=== PATIENT | female | born 1985 | race Caucasian/White ===

== ENCOUNTER 2017-06-18 05:53 | Emergency (ER) | payer MEDICAID ==
--- NOTE | 2017-06-18 06:29 | ED Physician Documentation ---
PD HPI CHEST PAIN - Stated complaint Stated Complaint: RT RIB PAIN - Chief complaint Chief Complaint: General - History obtained from History obtained from: Patient - History of Present Illness Timing - onset: How many weeks ago (1) Timing - duration: Weeks (1) Timing - details: Gradual onset, Waxing and waning Pain level now: 4 Quality: Pain Location: Right chest Radiation: Neck (right side of neck) Worsened by: Inspiration, Movement, Position Associated symptoms: No: Shortness of air, Diaphoresis, Nausea, Vomiting, Palpitations, Cough Similar symptoms before: Has not had sx before Recently seen: Not recently seen - Additional information Additional information: one week of gradually worsening right low anterolateral chest wall pain, pleuritic and also exacerbated with palpation. Denies h/o similar symptoms. Denies injury. No recent plane travel, surgery/immobilization. Review of Systems Constitutional: reports: Reviewed and negative Cardiac: reports: Chest pain / pressure. denies: Palpitations Respiratory: reports: Reviewed and negative GI: reports: Abdominal Pain. denies: Nausea, Vomiting : denies: Dysuria, Frequency PD PAST MEDICAL HISTORY - Past Medical History Past Medical History: No - Past Surgical History Past Surgical History: No - Present Medications Home Medications: Ambulatory Orders Medication Instructions Recorded Confirmed Ibuprofen [Motrin] 400 mg PO Q6H PRN #30 tablet 06/18/17 Lidocaine Patch 5% [Lidoderm Patch] 1 each TOP DAILY PRN #10 patch 06/18/17 - Allergies Allergies/Adverse Reactions: Allergies Allergy/AdvReac Type Severity Reaction Status Date / Time ippicat Allergy Anaphylaxis Uncoded 05/10/16 11:49 - Social History Does the pt smoke?: No Smoking Status: Never smoker Does the pt drink ETOH?: Yes Does the pt have substance abuse?: Yes - Immunizations Immunizations are current?: Yes PD ED PE NORMAL - Vitals Vital signs reviewed: Yes - General General: Alert and oriented X 3, No acute distress (NAD at rest, but painful discomfort with abdominal exam), Well developed/nourished - Neck Neck: Supple, no meningeal sign - Cardiac Cardiac: RRR, No murmur, No gallop, No rub - Respiratory Respiratory: No respiratory distress, Clear bilaterally - Abdomen Abdomen: Soft, Non distended, Other (TTP RUQ, although unclear if this is due to palpation of abdomen or resulting traction on the right low chest wall/ribs) - Derm Derm: Normal color, Warm and dry, No rash - Extremities Extremities: No edema Results - Vitals Vitals: Vital Signs - 24 hr 06/18/17 06/18/17 06/18/17 05:57 10:33 11:46 Temperature 36.3 C L 36.5 C 36.4 C L Heart Rate 88 68 68 Respiratory 16 16 16 Rate Blood Pressure 124/89 H 119/75 110/75 O2 Saturation 97 98 97 06/18/17 12:40 Temperature 36.6 C Heart Rate 65 Respiratory 18 Rate Blood Pressure 113/68 O2 Saturation 99 Oxygen O2 Source Room air - Labs Labs: Laboratory Tests 06/18/17 06/18/17 06/18/17 07:00 07:00 07:00 WBC 9.0 RBC 5.15 Hgb 13.9 Hct 42.0 MCV 81.6 MCH 27.1 MCHC 33.2 RDW 14.6 Plt Count 256 MPV 7.4 L Neut # 5.3 Lymph # 2.7 [place] # 0.5 Eos # 0.4 Baso # 0.1 Absolute Nucleated RBC 0.01 Nucleated RBC % 0.1 D-Dimer 223.3 Sodium 135 Potassium 4.1 Chloride 102 Carbon Dioxide 25 Anion Gap 8.0 BUN 13 Creatinine 0.8 Estimated GFR (MDRD) 83 L Glucose 129 H Calcium 9.3 Total Bilirubin 0.4 AST 18 ALT 26 Alkaline Phosphatase 66 Total Protein 7.3 Albumin 3.9 Globulin 3.4 Albumin/Globulin Ratio 1.1 Lipase 42 Ur Specific [place] Urine HCG, Qual 06/18/17 07:00 WBC RBC Hgb Hct MCV MCH MCHC RDW Plt Count MPV Neut # Lymph # [place] # Eos # Baso # Absolute Nucleated RBC Nucleated RBC % D-Dimer Sodium Potassium Chloride Carbon Dioxide Anion Gap BUN Creatinine Estimated GFR (MDRD) Glucose Calcium Total Bilirubin AST ALT Alkaline Phosphatase Total Protein Albumin Globulin Albumin/Globulin Ratio Lipase Ur Specific [place] >=1.030 H Urine HCG, Qual NEGATIVE - Rads (name of study) chest xray Radiology: Prelim report reviewed, See rad report RUQ US Radiology: Prelim report reviewed, See rad report PD MEDICAL DECISION MAKING - ED course Complexity details: reviewed results, re-evaluated patient, considered differential, d/w patient ED course: given IV toradol but patient reported minimal relief, thus 4mg IV morphine ordered. CXR and blood tests unremarkable, so RUQ US ordered. This was at the end of my shift and thus case signed-out to Dr. Muller. Departure - Departure Disposition: 01 Home, Self Care Clinical Impression: Rib pain on right side, Abdominal pain Condition: Good Instructions: ED Abdominal Pain Unkn Cause, ED Contusion Chest Wall Follow-Up: Freddie Garcia MD [Provider Admit Priv/Credential] - Prescriptions: Ibuprofen [Motrin] 400 mg PO Q6H PRN #30 tablet PRN Reason: Pain Lidocaine Patch 5% [Lidoderm Patch] 1 each TOP DAILY PRN #10 patch PRN Reason: Pain Comments: All of the tests today came back fine. The blood work including kidney liver and pancreas function was fine. The ultrasound did not show any gallstones The CT scan did not show a liver abscess after all, also no gallstones or kidney stones, no pancreatitis, no aneurysm, no bowel infection/perforation/ obstruction, no internal bleeding or free fluid I am not sure what is causing the pain. It could be a rib injury or muscle strain as you initially suspected But given the extensive and reassuring workup, I do not think you need surgery or admission or antibiotics. I think it is safe for you to go home and to get any further work up as an outpatient It is very possible that over time, new or changing symptoms may develop that lead to a diagnosis not presently apparent. That is why close follow up with your PMD for a recheck is very important You can try motrin and lidocaine patches to ease the pains. I do not recommend any strong pain killers because I do not want to mask changing or worsening symptoms Discharge Date/Time: 06/18/17 13:10
[2017-06-18] MEDS ORDERED: KETOROLAC 60 MG/2 ML VIAL IVP STA (06:50)
[2017-06-18 07:18] LABS: BASOPHILS # (AUTO) 0.1 10^3/uL (0.0-0.1); EOSINOPHILS # (AUTO) 0.4 10^3/uL (0.0-0.7); EOSINOPHILS % (AUTO) 4.3 %; HGB - HEMOGLOBIN 13.9 g/dL (12.0-16.0); LYMPHOCYTES # (AUTO) 2.7 10^3/uL (1.5-3.5); LYMPHOCYTES % (AUTO) 30.1 %; MEAN CORPUSCULAR HEMOGLOBIN 27.1 pg (27.0-31.0); MEAN CORPUSCULAR HGB CONC 33.2 g/dL (32.0-36.0); MEAN CORPUSCULAR VOLUME 81.6 fL (81.0-99.0); MEAN PLATELET VOLUME 7.4 fL (7.9-10.8); MONOCYTES # (AUTO) 0.5 10^3/uL (0.0-1.0); MONOCYTES % (AUTO) 5.7 %; NEUTROPHILS # (AUTO) 5.3 10^3/uL (1.5-6.6); NEUTROPHILS % (AUTO) 58.9 %; NUCLEATED RED BLOOD CELLS AUTO 0.1 /100WBC; RED BLOOD COUNT 5.15 10^6/uL (4.20-5.40); RED CELL DISTRIBUTION WIDTH 14.6 % (12.0-15.0)
[2017-06-18 07:21] LABS: HCG UR QUAL NEGATIVE
[2017-06-18 07:24] LABS: ALBUMIN/GLOBULIN RATIO 1.1 (1.0-2.2); BILIRUBIN,TOTAL 0.4 mg/dL (0.2-1.0); CALCIUM 9.3 mg/dL (8.5-10.3); CREATININE 0.8 mg/dL (0.4-1.0); POTASSIUM 4.1 mmol/L (3.5-5.0); TOTAL PROTEIN 7.3 g/dL (6.7-8.2)
--- NOTE | 2017-06-18 07:48 | XRAY Preliminary Report ---
Exam: XR CHEST 2 VIEW PA/LAT IMPRESSION: Negative 2-view chest radiography. [facility] SITE ID: [id number]
--- NOTE | 2017-06-18 07:51 | XRAY Report ---
EXAM: CHEST RADIOGRAPHY EXAM DATE: 06/18/2017 07:41 AM. CLINICAL HISTORY: Right chest pain. COMPARISON: None. TECHNIQUE: 2 views. FINDINGS: Lungs/Pleura: No focal opacities evident. No pleural effusion. No pneumothorax. Normal volumes. Mediastinum: Heart and mediastinal contours are unremarkable. Other: Negative bony structures. IMPRESSION: Negative 2-view chest radiography. [facility] Referring Provider Line: [phone] SITE ID: [id number]
[2017-06-18] MEDS ORDERED: MORPHINE 10 MG/ML VIAL IVP STA (08:32)
--- NOTE | 2017-06-18 08:46 | ED Physician Documentation ---
History of Present Illness - Stated complaint Stated Complaint: RT RIB PAIN - Chief complaint Chief Complaint: General PD PAST MEDICAL HISTORY - Past Surgical History Past Surgical History: No - Present Medications Home Medications: Ambulatory Orders Medication Instructions Recorded Confirmed Ibuprofen [Motrin] 400 mg PO Q6H PRN #30 tablet 06/18/17 Lidocaine Patch 5% [Lidoderm Patch] 1 each TOP DAILY PRN #10 patch 06/18/17 - Allergies Allergies/Adverse Reactions: Allergies Allergy/AdvReac Type Severity Reaction Status Date / Time ippicat Allergy Anaphylaxis Uncoded 05/10/16 11:49 - Social History Does the pt smoke?: No Smoking Status: Never smoker Does the pt drink ETOH?: Yes Does the pt have substance abuse?: Yes - Immunizations Immunizations are current?: Yes Results - Vitals Vitals: Vital Signs - 24 hr 06/18/17 06/18/17 06/18/17 05:57 10:33 11:46 Temperature 36.3 C L 36.5 C 36.4 C L Heart Rate 88 68 68 Respiratory 16 16 16 Rate Blood Pressure 124/89 H 119/75 110/75 O2 Saturation 97 98 97 Oxygen O2 Source Room air - Labs Labs: Laboratory Tests 06/18/17 06/18/17 06/18/17 07:00 07:00 07:00 WBC 9.0 RBC 5.15 Hgb 13.9 Hct 42.0 MCV 81.6 MCH 27.1 MCHC 33.2 RDW 14.6 Plt Count 256 MPV 7.4 L Neut # 5.3 Lymph # 2.7 [place] # 0.5 Eos # 0.4 Baso # 0.1 Absolute Nucleated RBC 0.01 Nucleated RBC % 0.1 D-Dimer 223.3 Sodium 135 Potassium 4.1 Chloride 102 Carbon Dioxide 25 Anion Gap 8.0 BUN 13 Creatinine 0.8 Estimated GFR (MDRD) 83 L Glucose 129 H Calcium 9.3 Total Bilirubin 0.4 AST 18 ALT 26 Alkaline Phosphatase 66 Total Protein 7.3 Albumin 3.9 Globulin 3.4 Albumin/Globulin Ratio 1.1 Lipase 42 Ur Specific [place] Urine HCG, Qual 06/18/17 07:00 WBC RBC Hgb Hct MCV MCH MCHC RDW Plt Count MPV Neut # Lymph # [place] # Eos # Baso # Absolute Nucleated RBC Nucleated RBC % D-Dimer Sodium Potassium Chloride Carbon Dioxide Anion Gap BUN Creatinine Estimated GFR (MDRD) Glucose Calcium Total Bilirubin AST ALT Alkaline Phosphatase Total Protein Albumin Globulin Albumin/Globulin Ratio Lipase Ur Specific [place] >=1.030 H Urine HCG, Qual NEGATIVE PD MEDICAL DECISION MAKING - ED course ED course: assumed care 830 AM RUQ sono pending went to see pt no pain nand rest but TTP right along costal margin on exam - no rash RRR CTAB sono = no gallstones but possible liver abscess so then got CT per rad rec and that did not show an abscess or any other acute process so 33 f with progressive R costal margin pain worse with palp and insp neg CXR neg d dimer neg ruq sono neg CT scan etiology unclear could perhaps be shingles and no rash yet but that would prob not be pleuritic or worse with palp pt thinks she may have just pulled a muscle or bruised a rib caring for her 4 children but given extensive and reassuring work up think safe to dc home Departure - Departure Disposition: 01 Home, Self Care Clinical Impression: Rib pain on right side Abdominal pain Qualifiers: Abdominal location: right upper quadrant Qualified Code(s): R10.11 - Right upper quadrant pain Condition: Good Instructions: ED Abdominal Pain Unkn Cause, ED Contusion Chest Wall Follow-Up: Freddie Garcia MD [Provider Admit Priv/Credential] - Prescriptions: Ibuprofen [Motrin] 400 mg PO Q6H PRN #30 tablet PRN Reason: Pain Lidocaine Patch 5% [Lidoderm Patch] 1 each TOP DAILY PRN #10 patch PRN Reason: Pain Comments: All of the tests today came back fine. The blood work including kidney liver and pancreas function was fine. The ultrasound did not show any gallstones The CT scan did not show a liver abscess after all, also no gallstones or kidney stones, no pancreatitis, no aneurysm, no bowel infection/perforation/ obstruction, no internal bleeding or free fluid I am not sure what is causing the pain. It could be a rib injury or muscle strain as you initially suspected But given the extensive and reassuring workup, I do not think you need surgery or admission or antibiotics. I think it is safe for you to go home and to get any further work up as an outpatient It is very possible that over time, new or changing symptoms may develop that lead to a diagnosis not presently apparent. That is why close follow up with your PMD for a recheck is very important You can try motrin and lidocaine patches to ease the pains. I do not recommend any strong pain killers because I do not want to mask changing or worsening symptoms
[2017-06-18] MEDS ORDERED: IOPAMIDOL-300 100 ML VIAL ONE (10:01)
[2017-06-18] MEDS ORDERED: IOPAMIDOL-300 100 ML VIAL IVP ONE (10:23)
--- NOTE | 2017-06-18 11:11 | CT Preliminary Report ---
Exam: CT ABDOMEN/PELVIS W/ IMPRESSION: Diffuse fatty infiltration of the liver. No CT correlate for the ultrasound finding. No a cute findings in the abdomen and pelvis. Incidental note made of bilateral L5 pars interarticularis d efects and mild lumbar levoscoliosis. [facility] SITE ID: [id number]
--- NOTE | 2017-06-18 11:13 | CT Report ---
EXAM: CT ABDOMEN AND PELVIS EXAM DATE: 06/18/2017 10:30 AM. CLINICAL HISTORY: Abdominal pain. Abn liver on sono concern for abscess rad rec CT. COMPARISONS: Ultrasound earlier today.. TECHNIQUE: Routine helical CT imaging was performed through the abdomen and pelvis. IV contrast: 100M L OF ISOVUE 300. Enteric contrast: No. Reconstructions: Coronal and sagittal. In accordance with CT protocol optimization, one or more of the following dose reduction techniques w ere utilized for this exam: automated exposure control, adjustment of mA and/or KV based on patient s ize, or use of iterative reconstructive technique. FINDINGS: Lung Bases: Unremarkable. Liver: Patchy diffuse fatty infiltration. No masses. No correlate for the finding on ultrasound. Gallbladder/Bile Ducts: Unremarkable. Spleen: Normal. Pancreas: Normal. Adrenal Glands: Normal. Kidneys: Normal. No masses or hydronephrosis. Peritoneal Cavity/Bowel: No free fluid, free air or adenopathy. No masses or acute inflammatory proc ess. The appendix is well seen and normal. Pelvic Organs: The bladder and pelvic organs are within normal limits. Vasculature: No aneurysms or other significant abnormality. Bones: Bilateral L5 pars interarticularis defects. Mild lumbar levoscoliosis Other: None. IMPRESSION: Diffuse fatty infiltration of the liver. No CT correlate for the ultrasound finding. No a cute findings in the abdomen and pelvis. Incidental note made of bilateral L5 pars interarticularis d efects and mild lumbar levoscoliosis. [facility] Referring Provider Line: [phone] SITE ID: [id number]
[2017-06-18 12:47] VITALS: BP 113/68
--- NOTE | 2017-06-19 09:01 | Ultrasound Report ---
EXAM: RIGHT UPPER QUADRANT ULTRASOUND: 06/18/2017 CLINICAL INDICATION: Right upper quadrant pain. TECHNIQUE: Real-time scanning was performed with sales training representative static images obtained. FINDINGS: The liver measures 18.9 cm. Hepatic echogenicity is increased, compatible with fatty infiltration. There is a focus of shadowing, which appears to reside within the left lobe of the liver, and shadows as if there is gas within it. If this is truly within the liver, it may represent a hepatic abscess. Further evaluation with CT is recommended. The gallbladder appears unremarkable. The common bile duct measures 5 mm. The right kidney measures 13.2 cm, and demonstrates no hydronephrosis. No free fluid is present. IMPRESSION: NO EVIDENCE OF CHOLELITHIASIS OR BILIARY OBSTRUCTION. FOCUS OF SHADOWING WHICH APPEARS TO RESIDE WITHIN THE LEFT LOBE OF THE LIVER. IF THIS IS TRULY WITHIN THE LIVER, IT MAY REPRESENT A HEPATIC ABSCESS, SO CT IS RECOMMENDED FOR FURTHER EVALUATION. TD: 06/18/2017 15:44 MTDD
== END 2017-06-18 13:10 | disposition home or self-care (01) ==
LOC: ED 05:53
DX: R07.81 Pleurodynia (principal); R10.11 Right upper quadrant pain
CPT/HCPCS: 36415; 71020; 74177; 76705; 80053; 81025; 83690; 85025; 85379; 96374; 96375; 99283; Q9967

== ENCOUNTER 2020-02-05 14:59 | Outpatient (CLI) | payer MEDICAID ==
[2020-02-05 18:41] LABS: BASOPHILS # (AUTO) 0.1 10^3/uL (0.0-0.1); BASOPHILS % (AUTO) 0.7 %; EOSINOPHILS # (AUTO) 0.5 10^3/uL (0.0-0.7); EOSINOPHILS % (AUTO) 6.3 %; HGB - HEMOGLOBIN 14.2 g/dL (12.0-16.0); LYMPHOCYTES # (AUTO) 2.4 10^3/uL (1.5-3.5); MEAN CORPUSCULAR HEMOGLOBIN 27.5 pg (27.0-31.0); MEAN PLATELET VOLUME 9.8 fL (7.9-10.8); MONOCYTES # (AUTO) 0.6 10^3/uL (0.0-1.0); MONOCYTES % (AUTO) 6.6 %; NEUTROPHILS # (AUTO) 4.8 10^3/uL (1.5-6.6); NEUTROPHILS % (AUTO) 57.8 %; PLT - PLATELET COUNT 312 10^3/uL (130-450); RED BLOOD COUNT 5.16 10^6/uL (4.20-5.40); RED CELL DISTRIBUTION WIDTH 13.9 % (12.0-15.0); WHITE BLOOD COUNT 8.4 x10^3/uL (4.8-10.8)
[2020-02-05 19:07] LABS: ALBUMIN/GLOBULIN RATIO 1.3 (1.0-2.2); BILIRUBIN,TOTAL 0.3 mg/dL (0.2-1.0); CALCIUM 8.8 mg/dL (8.5-10.3); CREATININE 0.8 mg/dL (0.4-1.0); TOTAL PROTEIN 7.2 g/dL (6.7-8.2)
== END 2020-02-05 23:59 | disposition home or self-care (01) ==
LOC: LAB.WCP 14:59
PROVIDERS: ATTEND Nurse Practitioner Family
DX: Z00.00 Encounter for general adult medical examination without abnormal findings (principal)
CPT/HCPCS: 36415; 80053; 84443; 85025

== ENCOUNTER 2020-03-19 14:42 | Outpatient (CLI) | payer MEDICAID ==
--- NOTE | 2020-03-19 16:23 | CT Report ---
PROCEDURE: HEAD WO INDICATIONS: ATYPICAL HEADACHE TECHNIQUE: Noncontrast 4.5 mm thick angled axial sections acquired from the foramen magnum to the vertex. For r adiation dose reduction, the following was used: automated exposure control, adjustment of mA and/or kV according to patient size. COMPARISON: None. FINDINGS: Image quality: Excellent. CSF spaces: Basal cisterns are patent. No extra-axial fluid collections. Ventricles are normal in size and shape. Brain: No midline shift. No intracranial masses or hemorrhage. Smalls-white matter interface is norm al. Skull and face: Calvarium and visualized facial bones are intact, without suspicious lesions. Sinuses: Visualized sinuses demonstrate right maxillary sinus mucus retention cyst. IMPRESSION: 1. No acute intracranial process. Reviewed by: Ling Suazo MD on 03/19/2020 4:22 PM PDT Approved by: Ling Suazo MD on 03/19/2020 4:22 PM PDT Station ID: [id number]
== END 2020-03-19 14:43 | disposition home or self-care (01) ==
LOC: DI 14:42
PROVIDERS: ATTEND Nurse Practitioner Family
DX: R51 Headache (principal)
CPT/HCPCS: 70450

== ENCOUNTER 2020-05-14 11:22 | Outpatient (CLI) | payer MEDICAID ==
--- NOTE | 2020-05-14 11:25 | XRAY Report ---
PROCEDURE: Lumbar Spine Complete INDICATIONS: ACUTE LOWER BACK PAIN TECHNIQUE: 5 views of the lumbar spine were acquired. COMPARISON: None. FINDINGS: Bones: Lumbar levoscoliosis with Izaguirre angle of approximately 26 degrees centered at L3. No listhesis . Oblique views demonstrate no evidence of pars defect or significant osseous neural foraminal narrow ing. The vertebral disc spaces are congruent and maintained. Soft tissues: Overlying bowel gas pattern is normal. No suspicious soft tissue calcifications. IMPRESSION: Lumbar levoscoliosis with Izaguirre angle of 26 degrees centered at L3. No osseous neural foraminal narrowing or significant disc height loss demonstrated. Reviewed by: Bonifacio Carrion MD on 05/14/2020 11:23 AM PST Approved by: Bonifacio Carrion MD on 05/14/2020 11:23 AM PST Station ID: [id number]
== END 2020-05-14 23:59 | disposition home or self-care (01) ==
LOC: DI.N 11:22
PROVIDERS: ATTEND Nurse Practitioner
DX: M41.86 Other forms of scoliosis, lumbar region (principal)

== ENCOUNTER 2021-02-18 15:37 | Outpatient (CLI) | payer MEDICAID | END 2021-02-18 15:38 | disposition critical access hospital (66) | LOC: EMS 15:37 | DX: R10.9 Unspecified abdominal pain (principal) | CPT/HCPCS: A0425; A0427; A0999 ==

== ENCOUNTER 2021-02-18 15:53 | Emergency (ER) | payer MEDICAID ==
[2021-02-18] MEDS ORDERED: KETOROLAC 30 MG/ML VIAL IVP STA (16:00)
[2021-02-18] MEDS ORDERED: SODIUM CHLORIDE 0.9% 1,000 ML IV STA (16:00)
--- NOTE | 2021-02-18 16:05 | ED Physician Documentation ---
PD HPI ABD PAIN - Stated complaint Stated Complaint: R FLANK PX - History obtained from History obtained from: Patient, EMS - History of Present Illness Timing - onset: Enter time (1500), Today Timing - duration: Minutes Timing - details: Abrupt onset, Still present Quality: Sharp, Pain Location: RUQ Radiation: Right flank Improved by: Other (nothing) Worsened by: Other (nothing) Associated symptoms: Nausea. No: Vomiting Similar symptoms before: Diagnosis (kidney stone) Recently seen: Not recently seen - Additional information Additional information: Previously well 35-year-old female with a history of kidney stone has developed acute right upper quadrant abdominal pain radiating into her flank and across her abdomen. There are no modifying factors for this pain. This is similar to what she is had previously with kidney stone. She is in a lot of pain and did not get much relief with use of fentanyl given intravenously. Review of Systems Constitutional: denies: Fever Eyes: denies: Decreased vision Ears: denies: Ear pain Nose: denies: Congestion Throat: denies: Sore throat Cardiac: denies: Chest pain / pressure, Palpitations Respiratory: denies: Dyspnea, Cough GI: reports: Abdominal Pain, Nausea. denies: Vomiting : denies: Dysuria, Frequency PD PAST MEDICAL HISTORY - Past Surgical History Past Surgical History: No - Present Medications Home Medications: Ambulatory Orders Medication Instructions Recorded Confirmed Ibuprofen [Motrin] 400 mg PO Q6H PRN #30 tablet 06/18/17 Lidocaine Patch 5% [Lidoderm Patch] 1 each TOP DAILY PRN #10 patch 06/18/17 Oxycodone HCl/Acetaminophen 1 - 2 each PO Q6H PRN #14 tablet 02/18/21 [Percocet 5-325 mg Tablet] Tamsulosin [Flomax] 0.4 mg PO DAILY #7 cap 02/18/21 - Allergies Allergies/Adverse Reactions: Allergies Allergy/AdvReac Type Severity Reaction Status Date / Time ippicat Allergy Anaphylaxis Uncoded 02/18/21 16:11 - Social History Does the pt smoke?: No Smoking Status: Never smoker Does the pt drink ETOH?: Yes Does the pt have substance abuse?: Yes - Immunizations Immunizations are current?: Yes PD ED PE NORMAL - Vitals Vital signs reviewed: Yes - General General: Alert and oriented X 3, Well developed/nourished, Other (appears to be in pain ) - HEENT HEENT: Atraumatic, PERRL, EOMI - Neck Neck: Supple, no meningeal sign, No bony TTP - Cardiac Cardiac: RRR, No murmur - Respiratory Respiratory: No respiratory distress, Clear bilaterally - Abdomen Abdomen: Normal bowel sounds, Soft, Non tender, Non distended, No organomegaly - Back Back: No CVA TTP, No spinal TTP - Derm Derm: Normal color, Warm and dry, No rash - Extremities Extremities: No deformity, No edema - Neuro Neuro: Alert and oriented X 3, pt skilled 2-12 intact, No motor deficit, No sensory deficit, Normal speech Eye Opening: Spontaneous Motor: Obeys Commands Verbal: Oriented GCS Score: 15 - Psych Psych: Normal mood, Normal affect Results - Vitals Vitals: Vital Signs - 24 hr 02/18/21 02/18/21 02/18/21 16:00 18:10 18:34 Temperature 36.8 C 36.7 C Heart Rate 63 73 61 Respiratory 18 18 14 Rate Blood Pressure 123/75 102/66 101/71 O2 Saturation 99 94 96 Oxygen O2 Source Room air - Labs Labs: Laboratory Tests 02/18/21 02/18/21 02/18/21 16:08 16:08 17:49 WBC 10.8 RBC 5.51 H Hgb 15.1 Hct 45.5 MCV 82.6 MCH 27.4 MCHC 33.2 RDW 13.5 Plt Count 406 MPV 8.9 Neut # (Auto) 5.2 Lymph # (Auto) 4.2 [place] # (Auto) 0.8 Eos # (Auto) 0.5 Baso # (Auto) 0.1 Absolute Nucleated RBC 0.00 Nucleated RBC % 0.0 Sodium 137 Potassium 3.1 L Chloride 106 Carbon Dioxide 17 L Anion Gap 14.0 H BUN 14 Creatinine 0.9 Estimated GFR (MDRD) 70 L Glucose 180 H Calcium 9.0 Total Bilirubin 0.9 AST 20 ALT 19 Alkaline Phosphatase 51 Total Protein 7.3 Albumin 4.2 Globulin 3.1 Albumin/Globulin Ratio 1.4 Lipase 33 Urine Color YELLOW Urine Clarity CLEAR Urine pH 6.0 Ur Specific [place] 1.025 Urine Protein TRACE Urine Glucose (UA) NEGATIVE Urine Ketones >=80 H Urine Occult Blood LARGE H Urine Nitrite NEGATIVE Urine Bilirubin NEGATIVE Urine Urobilinogen 0.2 (NORMAL) Ur Leukocyte Esterase NEGATIVE Urine RBC TNTC H Urine WBC 0-3 Ur Squamous Epith Cells MOD Squamous H Urine Bacteria Moderate H Urine Mucus Moderate Strands Ur Microscopic Review INDICATED Urine Culture Comments NOT INDICATED Urine HCG, Qual NEGATIVE - Rads (name of study) CT ab pel Radiology: Prelim report reviewed (Impression: 1. Small 3 mm right proximal ureteral calculus results in mild right hydronephrosis. Incidental 5 mm right middle lobe nodule is stable from prior. No follow-up is required.), EMP read indepedently, See rad report Procedures - Bedside sono Bedside sono by EMP: With the use of bedside ultrasound the right upper quadrant is imaged the kidney is sonographically nontender there is evidence of hydronephrosis. PD MEDICAL DECISION MAKING - ED course Complexity details: reviewed old records, reviewed results, re-evaluated patient, considered differential, d/w patient, d/w family ED course: 35-year-old female with acute right sided flank pain nonmodifiable has a through 3 mm proximal ureteral stone. She has marked improvement with use of Toradol intravenously and she is discharged home with expectant management feeling well. She is administered a liter of saline as well and she is placed onto Flomax as this is helped with her previously Departure - Departure Disposition: Home, Self Care Clinical Impression: Ureterolithiasis Condition: Stable Instructions: ED Stone Renal W Colic Follow-Up: ERNST COOK, MSN, PERFORMANCE REPORTER [Credentialed Staff Provider] - Ofelia Magdaleno MD [Physician No Access] - Prescriptions: Tamsulosin [Flomax] 0.4 mg PO DAILY #7 cap Oxycodone HCl/Acetaminophen [Percocet 5-325 mg Tablet] 1 - 2 each PO Q6H PRN #14 tablet PRN Reason: pain Discharge Date/Time: 02/18/21 18:36
[2021-02-18 16:14] LABS: BASOPHILS # (AUTO) 0.1 10^3/uL (0.0-0.1); BASOPHILS % (AUTO) 1.1 %; EOSINOPHILS # (AUTO) 0.5 10^3/uL (0.0-0.7); EOSINOPHILS % (AUTO) 4.5 %; HCT - HEMATOCRIT 45.5 % (37.0-47.0); HGB - HEMOGLOBIN 15.1 g/dL (12.0-16.0); LYMPHOCYTES # (AUTO) 4.2 10^3/uL (1.5-3.5); LYMPHOCYTES % (AUTO) 38.6 %; MEAN CORPUSCULAR HEMOGLOBIN 27.4 pg (27.0-31.0); MEAN CORPUSCULAR HGB CONC 33.2 g/dL (32.0-36.0); MEAN CORPUSCULAR VOLUME 82.6 fL (81.0-99.0); MEAN PLATELET VOLUME 8.9 fL (7.9-10.8); MONOCYTES # (AUTO) 0.8 10^3/uL (0.0-1.0); MONOCYTES % (AUTO) 7.3 %; NEUTROPHILS # (AUTO) 5.2 10^3/uL (1.5-6.6); NEUTROPHILS % (AUTO) 48.3 %; PLT - PLATELET COUNT 406 10^3/uL (130-450); RED BLOOD COUNT 5.51 10^6/uL (4.20-5.40); RED CELL DISTRIBUTION WIDTH 13.5 % (12.0-15.0); WHITE BLOOD COUNT 10.8 x10^3/uL (4.8-10.8)
[2021-02-18 16:32] LABS: ALBUMIN 4.2 g/dL (3.2-5.5); ALBUMIN/GLOBULIN RATIO 1.4 (1.0-2.2); BILIRUBIN,TOTAL 0.9 mg/dL (0.2-1.0); CREATININE 0.9 mg/dL (0.4-1.0); POTASSIUM 3.1 mmol/L (3.5-5.0); TOTAL PROTEIN 7.3 g/dL (6.7-8.2)
[2021-02-18] MEDS ORDERED: ONDANSETRON 4 MG/2 ML VIAL IVP STA (16:55)
[2021-02-18] MEDS ORDERED: POTASSIUM CHLORIDE 20 MEQ TABLET PO STA (17:08)
[2021-02-18 18:14] LABS: BILIRUBIN,URINE NEGATIVE (NEGATIVE); GLUCOSE, URINE (UA) NEGATIVE (NEGATIVE); KETONES,URINE (UA) >=80 mg/dL (NEGATIVE); LEUKOCYTE ESTERASE, URINE NEGATIVE (NEGATIVE); NITRITE,URINE NEGATIVE (NEGATIVE); OCCULT BLOOD,URINE LARGE (NEGATIVE); PROTEIN,URINE TRACE mg/dL (NEGATIVE); UROBILINOGEN,URINE 0.2 (NORMAL) E.U./dL (NORMAL)
[2021-02-18 18:16] LABS: CLARITY,URINE CLEAR (CLEAR); HCG UR QUAL NEGATIVE
[2021-02-18 18:32] LABS: BACTERIA,URINE Moderate /HPF (None Seen); MUCUS,URINE Moderate Strands; RBC,URINE TNTC /HPF (0-5); SQUAMOUS EPITHELIAL CELL,UR MOD Squamous (<= Few); WBC,URINE 0-3 /HPF (0-5)
[2021-02-18 18:36] VITALS: BP 101/71
--- NOTE | 2021-02-18 18:40 | CT Report ---
PROCEDURE: Abdomen/Pelvis WO INDICATIONS: R flank pain TECHNIQUE: Noncontrast 5 mm thick sections acquired from the diaphragms to the symphysis. 5 mm coronal and sagi ttal reformats were then performed. For radiation dose reduction, the following was used: automated exposure control, adjustment of mA and/or kV according to patient size. COMPARISON: 06/18/2017 FINDINGS: Image quality: Excellent. ABDOMEN: Lung bases: Incidental 5 mm nodule noted in the right middle lobe, stable from the prior Heart size i s normal. Solid organs: Liver and spleen are normal in size. Diffuse hepatic fatty infiltration noted. Gallbl adder unremarkable. Pancreas is normal in contours. No adrenal nodules. There is a 3 mm calculus in the proximal right ureter resulting in mild right hydronephrosis. No judson tional calculi present bilaterally. Peritoneum and bowel: Unenhanced bowel loops demonstrate normal wall thickness and caliber. No free fluid or air. Normal appendix identified. Nodes and vessels: No retroperitoneal or mesenteric adenopathy by size criteria. Aorta and inferior vena cava are normal in caliber. Miscellaneous: No ventral hernias. PELVIS: Genitourinary: Bladder wall thickness is normal. Miscellaneous: No inguinal hernias or adenopathy. Bones: No suspicious bony lesions. No vertebral body compression fractures. IMPRESSION: 1. Small 3 mm right proximal ureteral calculus results in mild right hydronephrosis. 2. Incidental 5 mm right middle lobe nodule is stable from the prior. No follow-up required. Reviewed by: Cortez Ye MD on 02/18/2021 5:39 PM AKDT Approved by: Cortez Ye MD on 02/18/2021 5:39 PM AKDT Station ID: [id number]
== END 2021-02-18 18:36 | disposition home or self-care (01) ==
LOC: EDUNIT# → ED 15:53
DX: N13.2 Hydronephrosis with renal and ureteral calculous obstruction (principal)
CPT/HCPCS: 36415; 74176; 80053; 81001; 81025; 83690; 85025; 96374; 96375; 99284; A9270; 81003; 87086

== ENCOUNTER 2021-02-19 09:00 | Emergency (ER) | payer MEDICAID ==
[2021-02-19] MEDS ORDERED: SODIUM CHLORIDE 0.9% 1,000 ML IV STA (09:24)
[2021-02-19] MEDS ORDERED: KETOROLAC 30 MG/ML VIAL IVP STA (09:24)
--- NOTE | 2021-02-19 09:26 | ED Physician Documentation ---
PD HPI ABD PAIN - Stated complaint Stated Complaint: R SIDE PX,NAUSEA - Chief complaint Chief Complaint: Abd Pain - History obtained from History obtained from: Family - History of Present Illness Timing - onset: Yesterday Timing - duration: Days (2) Timing - details: Abrupt onset, Still present, Waxing and waning Quality: Sharp, Pain Location: RUQ Radiation: Right flank Improved by: Meds Worsened by: Other (nothing) Associated symptoms: Nausea. No: Vomiting Similar symptoms before: Diagnosis (ureterolithiasis) Recently seen: Emergency Dept - Additional information Additional information: 35-year-old female with a history of kidney stone was seen in the emergency department yesterday with right-sided flank pain she had a proximal 3 mm ureteral stone she had marked improvement with use of Toradol intravenously here in the emergency department after she had been given fentanyl in the field without much improvement. She left the emergency department pain-free with this 3 mm proximal stone causing mild hydronephrosis. She did have pain return and she took the Percocet throughout the night and this seemed to help until early this morning when the pain suddenly was completely out of control. She returns now this morning in tears Review of Systems Constitutional: denies: Fever Eyes: denies: Decreased vision Ears: denies: Ear pain Nose: denies: Congestion Throat: denies: Sore throat Cardiac: denies: Chest pain / pressure, Palpitations Respiratory: denies: Dyspnea GI: reports: Abdominal Pain, Nausea. denies: Vomiting, Constipation, Diarrhea : denies: Dysuria, Frequency PD PAST MEDICAL HISTORY - Past Surgical History Past Surgical History: No - Present Medications Home Medications: Ambulatory Orders Medication Instructions Recorded Confirmed Oxycodone HCl/Acetaminophen 1 - 2 each PO Q6H PRN #14 tablet 02/18/21 02/19/21 [Percocet 5-325 mg Tablet] Tamsulosin [Flomax] 0.4 mg PO DAILY #7 cap 02/18/21 02/19/21 Hydromorphone HCl [Dilaudid] 4 mg PO Q4HR PRN #20 tablet 02/19/21 Ondansetron Odt [Zofran] 4 mg TL Q6H PRN #10 tablet 02/19/21 - Allergies Allergies/Adverse Reactions: Allergies Allergy/AdvReac Type Severity Reaction Status Date / Time epecac Allergy Unknown Uncoded 02/19/21 09:22 - Social History Does the pt smoke?: No Smoking Status: Never smoker Does the pt drink ETOH?: Yes Does the pt have substance abuse?: Yes - Immunizations Immunizations are current?: Yes PD ED PE NORMAL - Vitals Vital signs reviewed: Yes (Hypertensive) - General General: Alert and oriented X 3, Well developed/nourished, Other (Patient is in tears appears to be in pain with ice cream maker tone and flattened affect.) - HEENT HEENT: Atraumatic, PERRL, EOMI - Neck Neck: Supple, no meningeal sign, No bony TTP - Cardiac Cardiac: RRR, No murmur - Respiratory Respiratory: No respiratory distress, Clear bilaterally - Abdomen Abdomen: Normal bowel sounds, Soft, Non tender, Non distended, No organomegaly - Back Back: No CVA TTP, No spinal TTP - Derm Derm: Normal color, Warm and dry, No rash - Extremities Extremities: No deformity, No edema - Neuro Neuro: Alert and oriented X 3, sweater operator 2-12 intact, No motor deficit, No sensory deficit, Normal speech Eye Opening: Spontaneous Motor: Obeys Commands Verbal: Oriented GCS Score: 15 - Psych Psych: Normal mood, Normal affect Results - Vitals Vitals: Vital Signs - 24 hr 02/19/21 02/19/21 02/19/21 09:11 10:22 13:19 Temperature 36.6 C Heart Rate 77 97 66 Respiratory 16 16 16 Rate Blood Pressure 145/101 H 132/73 H 115/67 O2 Saturation 98 100 98 Oxygen O2 Source Room air - Labs Labs: Laboratory Tests 02/19/21 02/19/21 02/19/21 09:35 09:43 09:43 WBC 10.6 RBC 5.43 H Hgb 14.8 Hct 45.7 MCV 84.2 MCH 27.3 MCHC 32.4 RDW 13.9 Plt Count 328 MPV 9.1 Neut # (Auto) 8.0 H Lymph # (Auto) 1.7 Schley # (Auto) 0.5 Eos # (Auto) 0.2 Baso # (Auto) 0.1 Absolute Nucleated RBC 0.00 Nucleated RBC % 0.0 Sodium 141 Potassium 3.7 Chloride 112 H Carbon Dioxide 19 L Anion Gap 10.0 BUN 16 Creatinine 1.0 Estimated GFR (MDRD) 62 L Glucose 160 H Calcium 9.0 Total Bilirubin 0.6 AST 16 ALT 18 Alkaline Phosphatase 44 Total Protein 7.1 Albumin 4.1 Globulin 3.0 Albumin/Globulin Ratio 1.4 Lipase 34 Urine Color YELLOW Urine Clarity SL. CLOUDY Urine pH 5.5 Ur Specific [place] >=1.030 H Urine Protein TRACE Urine Glucose (UA) NEGATIVE Urine Ketones TRACE Urine Occult Blood LARGE H Urine Nitrite NEGATIVE Urine Bilirubin NEGATIVE Urine Urobilinogen 0.2 (NORMAL) Ur Leukocyte Esterase NEGATIVE Urine RBC 11-25 H Urine WBC 0-3 Ur Squamous Epith Cells RARE Squamous Urine Bacteria Rare Ur Microscopic Review INDICATED Urine Culture Comments NOT INDICATED PD MEDICAL DECISION MAKING - ED course Complexity details: reviewed old records, reviewed results, re-evaluated patient, considered differential, d/w patient, d/w family ED course: 35-year-old female returns to the emergency department after having lost control of her pain. She has a 3 mm proximal right ureteral stone she has some improvement in her pain yesterday with treatments administered in the emergency department and she continued to have pain throughout the night was having improvement with Percocet and this morning she has lost control of her pain she is in tears. She has not had fever. She is administered intravenous saline and Toradol without much improvement in her pain she is subsequently administered Dilaudid with improvement in the pain she has some nausea associated with this and is administered further Zofran when she begins to lose control of her pain again she is administered lidocaine as a 100 mg dose intravenously. She has further improvement in her pain. She requires further nausea medicine and then wants to go home. Departure - Departure Disposition: 01 Home, Self Care Clinical Impression: Ureterolithiasis Instructions: ED Stone Renal W Colic Follow-Up: ERNST COOK, MSN, NETWORK ASSOCIATE [Credentialed Staff Provider] - Ofelia Magdaleno MD [Physician No Access] - Prescriptions: Hydromorphone HCl [Dilaudid] 4 mg PO Q4HR PRN #20 tablet PRN Reason: Pain Ondansetron Odt [Zofran] 4 mg TL Q6H PRN #10 tablet PRN Reason: Nausea / Vomiting Discharge Date/Time: 02/19/21 13:20
[2021-02-19] MEDS ORDERED: ONDANSETRON 4 MG/2 ML VIAL IVP STA ×3 (09:45→12:35)
[2021-02-19] MEDS ORDERED: HYDROmorphone 1 MG/ML CARPUJECT IVP STA ×2 (09:47→12:35)
[2021-02-19 09:53] LABS: BASOPHILS # (AUTO) 0.1 10^3/uL (0.0-0.1); BASOPHILS % (AUTO) 0.7 %; EOSINOPHILS # (AUTO) 0.2 10^3/uL (0.0-0.7); EOSINOPHILS % (AUTO) 1.5 %; HCT - HEMATOCRIT 45.7 % (37.0-47.0); HGB - HEMOGLOBIN 14.8 g/dL (12.0-16.0); LYMPHOCYTES # (AUTO) 1.7 10^3/uL (1.5-3.5); LYMPHOCYTES % (AUTO) 16.5 %; MEAN CORPUSCULAR HEMOGLOBIN 27.3 pg (27.0-31.0); MEAN CORPUSCULAR HGB CONC 32.4 g/dL (32.0-36.0); MEAN CORPUSCULAR VOLUME 84.2 fL (81.0-99.0); MEAN PLATELET VOLUME 9.1 fL (7.9-10.8); MONOCYTES # (AUTO) 0.5 10^3/uL (0.0-1.0); MONOCYTES % (AUTO) 4.9 %; PLT - PLATELET COUNT 328 10^3/uL (130-450); RED BLOOD COUNT 5.43 10^6/uL (4.20-5.40); RED CELL DISTRIBUTION WIDTH 13.9 % (12.0-15.0); WHITE BLOOD COUNT 10.6 x10^3/uL (4.8-10.8)
[2021-02-19 09:55] LABS: BILIRUBIN,URINE NEGATIVE (NEGATIVE); GLUCOSE, URINE (UA) NEGATIVE (NEGATIVE); KETONES,URINE (UA) TRACE mg/dL (NEGATIVE); LEUKOCYTE ESTERASE, URINE NEGATIVE (NEGATIVE); NITRITE,URINE NEGATIVE (NEGATIVE); OCCULT BLOOD,URINE LARGE (NEGATIVE); PH,URINE 5.5 PH (5.0-7.5); PROTEIN,URINE TRACE mg/dL (NEGATIVE); UROBILINOGEN,URINE 0.2 (NORMAL) E.U./dL (NORMAL)
[2021-02-19 09:57] LABS: CLARITY,URINE SL. CLOUDY (CLEAR)
[2021-02-19 10:07] LABS: ALBUMIN 4.1 g/dL (3.2-5.5); ALBUMIN/GLOBULIN RATIO 1.4 (1.0-2.2); BILIRUBIN,TOTAL 0.6 mg/dL (0.2-1.0); POTASSIUM 3.7 mmol/L (3.5-5.0); TOTAL PROTEIN 7.1 g/dL (6.7-8.2)
[2021-02-19] MEDS ORDERED: LIDOCAINE-MPF 2% 5 ML in SODIUM CHLORIDE 0.9% 50 ML IV STA (10:14)
[2021-02-19 10:23] LABS: BACTERIA,URINE Rare /HPF (None Seen); SQUAMOUS EPITHELIAL CELL,UR RARE Squamous (<= Few); WBC,URINE 0-3 /HPF (0-5)
[2021-02-19 13:20] VITALS: BP 115/67
== END 2021-02-19 13:20 | disposition home or self-care (01) ==
LOC: ED 09:00
DX: N13.2 Hydronephrosis with renal and ureteral calculous obstruction (principal)
CPT/HCPCS: 36415; 80053; 81001; 83690; 85025; 96365; 96375; 99284; 99285; J1170; J7040; 81003; 87086

== ENCOUNTER 2021-05-02 08:00 | Outpatient (CLI) | payer MEDICAID | END 2021-05-02 23:59 | LOC: LAB.N 08:00 | PROVIDERS: ATTEND Family Medicine | DX: R05.9 Cough, unspecified (principal); Z20.822 Contact with and (suspected) exposure to COVID-19 ==